=== PATIENT | female | born 1960 | race African-American/Black ===

== ENCOUNTER 2019-01-19 08:32 | Outpatient (CLI) | payer OTHER ==
--- NOTE | 2019-01-19 08:45 | RAD ---
XR Shoulder Rt 3 View STANDARD: 01/19/2019 12:00 AM CLINICAL INDICATION: Pain COMPARISON: None. FINDINGS: Fracture:No fracture. Arthropathy:Mild osteoarthritis Incidental findings:None of significance. IMPRESSION: 1. No acute osseous abnormality.
== END 2019-01-19 08:33 | disposition home or self-care (01) ==
LOC: RAD-FRANK 08:32
PROVIDERS: ATTEND Internal Medicine
DX: M25.511 Pain in right shoulder (principal)

== ENCOUNTER 2020-07-01 11:47 | Outpatient (CLI) | payer BC | END 2020-07-01 11:48 | disposition home or self-care (01) | LOC: BICMAMMO 11:47 | PROVIDERS: ATTEND Nurse Practitioner Family | DX: Z12.31 Encounter for screening mammogram for malignant neoplasm of breast (principal) | CPT/HCPCS: 77063; 77067 ==

== ENCOUNTER 2021-09-08 12:03 | Outpatient (CLI) | payer OTHER | END 2021-09-08 12:04 | disposition home or self-care (01) | LOC: BICMAMMO 12:03 | PROVIDERS: ATTEND Family Medicine | DX: Z12.31 Encounter for screening mammogram for malignant neoplasm of breast (principal) | CPT/HCPCS: 77063; 77067 ==

== ENCOUNTER 2021-11-10 11:56 | Outpatient (CLI) | payer OTHER | END 2021-11-10 11:57 | disposition home or self-care (01) | LOC: BICRAD 11:56 | PROVIDERS: ATTEND Internal Medicine | DX: Z02.71 Encounter for disability determination (principal); M19.011 Primary osteoarthritis, right shoulder ==

== ENCOUNTER 2023-10-05 12:53 | Outpatient (CLI) | payer BC | END 2023-10-05 12:54 | disposition home or self-care (01) | LOC: BICMAMMO 12:53 | PROVIDERS: ATTEND Family Medicine | DX: Z12.31 Encounter for screening mammogram for malignant neoplasm of breast (principal); Z80.3 Family history of malignant neoplasm of breast | CPT/HCPCS: 77063; 77067 ==